=== PATIENT | female | born 1960 | race Caucasian/White ===

== ENCOUNTER 2018-08-28 10:17 | Outpatient (CLI) | payer OTHER ==
--- NOTE | 2018-08-28 12:35 | RAD ---
THREE VIEWS RIGHT FOOT: History: Stress fracture. Pain on the top of the foot and medially. FINDINGS: Three views of the right foot shows no evidence of acute fracture or dislocation. There is joint spac e narrowing in the great toe metatarsal phalangeal joint consistent with osteoarthritis. No periostea l reaction is seen to suggest a stress fracture. IMPRESSION: Degenerative changes of the great toe without acute osseous abnormality. POS: TOBY
== END 2018-08-28 10:18 | disposition home or self-care (01) ==
LOC: MADRAD 10:17
PROVIDERS: ATTEND Internal Medicine Rheumatology
DX: M84.374A Stress fracture, right foot, initial encounter for fracture (principal); M19.071 Primary osteoarthritis, right ankle and foot